=== PATIENT | male | born 1965 | race Caucasian/White ===

== ENCOUNTER 2018-09-15 16:46 | Emergency (ER) | payer BC ==
[2018-09-15] MEDS ORDERED: Triple Antibiotic Oint 1 GM Packet ONE (17:39)
[2018-09-15] MEDS ORDERED: Adacel (T-DAP) 0.5 ML SYRINGE ONE (17:51)
== END 2018-09-15 17:55 | disposition home or self-care (01) ==
LOC: MADERS 16:46
DX: S61.215A Laceration without foreign body of left ring finger without damage to nail, initial encounter (principal); W26.8XXA Contact with other sharp object(s), not elsewhere classified, initial encounter
CPT/HCPCS: 90471; 90715